=== PATIENT | male | born 1995 | race African-American/Black ===

== ENCOUNTER 2022-12-27 07:59 | Emergency (ER) | payer OTHER ==
[~2022-12-27] VITALS: Ht 188 cm; Wt 82.7 kg
[2022-12-27 09:01] LABS: HEMATOCRIT 49.6 % (42.0-52.0); HEMOGLOBIN 16.5 g/dl (13.5-17.5); MEAN CORPUSCULAR HEMOGLOBIN 30.5 pg (27.0-33.0); MEAN CORPUSCULAR HGB CONC 33.3 g/dl (32.0-36.5); MEAN CORPUSCULAR VOLUME 91.7 fl (80.0-96.0); PLATELET COUNT, AUTOMATED 167 10^3/uL (150-450); RED BLOOD COUNT 5.41 10^6/uL (4.30-6.10); WHITE BLOOD COUNT 4.7 10^3/uL (4.0-10.0)
[2022-12-27 09:07] LABS: AMPHETAMINES LEVEL URINE NEGATIVE (NEGATIVE)
[2022-12-27 09:08] LABS: BARBITURATES URINE NEGATIVE (NEGATIVE); BENZODIAZEPINES URINE NEGATIVE (NEGATIVE); CANNABINOIDS URINE NEGATIVE (NEGATIVE); COCAINE METABOLITE URINE NEGATIVE (NEGATIVE); METHADONE URINE NEGATIVE (NEGATIVE); OPIATES URINE NEGATIVE (NEGATIVE); PHENCYCLIDINE URINE NEGATIVE (NEGATIVE)
[2022-12-27 10:33] LABS: ETHYL ALCOHOL (ETHANOL) 0.003 % (0.000-0.010)
[2022-12-27 10:34] LABS: BLOOD UREA NITROGEN 8 MG/DL (9-23); CALCIUM LEVEL 9.3 MG/DL (8.5-10.1); CARBON DIOXIDE LEVEL 30 MMOL/L (20-31); CHLORIDE LEVEL 104 MMOL/L (98-107); CREATININE FOR GFR 1.04 MG/DL (0.70-1.30); GLOMERULAR FILTRATION RATE > 60.0 (>60); GLUCOSE, FASTING 86 MG/DL (60-100); MAGNESIUM LEVEL 1.8 MG/DL (1.8-2.4); POTASSIUM SERUM 4.3 MMOL/L (3.5-5.1); SODIUM LEVEL 140 MMOL/L (136-145)
[2022-12-27 11:00] VITALS: BP 120/88
== END 2022-12-27 11:16 | disposition home or self-care (01) ==
LOC: EDBD 07:59 → M ED 07:59
DX: I47.1 Supraventricular tachycardia (principal); I45.19 Other right bundle-branch block; F10.10 Alcohol abuse, uncomplicated

== ENCOUNTER 2023-05-11 16:12 | Emergency (ER) | payer OTHER ==
[~2023-05-11] VITALS: Ht 188 cm; Wt 78.4 kg
[2023-05-11 16:14] VITALS: BP 118/85; TEMP 97.1; O2SAT 99
== END 2023-05-11 18:20 | disposition left against medical advice (07) ==
LOC: M ED 16:12
DX: Z53.21 Procedure and treatment not carried out due to patient leaving prior to being seen by health care provider (principal)